=== PATIENT | male | born 1930 | race Caucasian/White ===

== ENCOUNTER 2017-03-08 03:04 | Emergency (ER) | payer OTHER ==
[2017-03-08 03:13] VITALS: BMI 24.4
--- NOTE | 2017-03-08 03:44 | DR.GENAD ---
HPI - PCP Primary Care PhysicianAkshat Salas - Complaint/Symptoms Chief Complaint:: "Since about 10 I have been feeling really anxious. When I checked my blood pressure it was 190/98. I have also been feeling some hot flashes." - Source History Provided: Patient - Mode of Arrival Mode of Arrival: Ambulatory - Timing Onset of Chief Complaint: 03/08/17 PMH - PMH Past Medical History: Yes Past Medical History: Depression, Dyslipidemia, GERD, Hypertension Past Surgical History: Yes Surgical History: Cholecystectomy, Ortho Surgery - Family History History of Family Medical Conditions: Yes Family Medical History: Diabetes Mellitus - Social History Does patient currently use any type of tobacco product: No Have you used tobacco products in the last 12 months: No Type of Tobacco Use: None Does any household member use tobacco: No Alcohol Use: None Do you use any recreational Drugs:: No Lives With: Family Lives Where: Home - infectious screening In the last 2 months have you had wt loss of >10#?: NO Have you had fever, night sweats or hemotysis?: No Have you traveled outside the country in the last 6 months?: No Isolation: Standard PE - Vital Signs Vitals: Temperature 98.1 F Pulse Rate 71 Respiratory Rate 18 Blood Pressure [Left Arm] 141/88 Blood Pressure [Right Arm] 155/70 Blood Pressure 168/85 O2 Sat by Pulse Oximetry 94 - General General Appearance: Alert, In No Apparent Distress - Head Head Exam: Normal Inspection, Atraumatic - Eyes Eye exam: Normal Appearance, PERRL, EOMI - ENT ENT Exam: Normal Exam External Ear Exam: Normal External Inspection TM/Canal Exam: Bilateral Normal Nose Exam: Normal Nose Exam Mouth Exam: Normal Inspection Throat Exam: Normal Inspection - Neck Neck Exam: Normal Inspection - Chest Chest Inspection: Normal Inspection - Respiratory Respiratory Exam: Normal Lung Sounds Bilat Respiratory Exam: Bilateral Clear to Auscultation - Cardiovascular Cardiovascular Exam: Regular Rate, Normal Rhythm - Abdominal Exam Abdominal Exam: Normal Inspection, Normal Bowel Sounds Abdominal Tenderness: negative: RUQ, RLQ, LUQ, LLQ, Epigastrium, Suprapubic, Diffuse, Mild, Moderate, Severe, Other - Extremities Extremities Exam: Normal Inspection, Full ROM - Back Back Exam: Normal Inspection, Full ROM - Neurologic Neurological Exam: Alert, Oriented X3, CN II-XII Intact - Psychiatric Psychiatric Exam: Normal Affect - Skin Skin Exam: Warm, Dry, Intact Course - Reevaluation 1st: Improved ROR - Labs Reviewed Result Diagrams: 03/08/17 03:55 03/08/17 03:55 Laboratory: WBC 7.4 X10^3/uL (3.6-10.0) 03/08/17 03:55 RBC 4.76 X10^6/uL (4.7-6.0) 03/08/17 03:55 Hgb 13.8 g/dL (13.5-18.0) 03/08/17 03:55 Hct 40.7 % (42.0-54.0) L 03/08/17 03:55 MCV 85.4 fL (80.0-100.0) 03/08/17 03:55 MCH 28.9 pg (27.0-34.0) 03/08/17 03:55 MCHC 33.8 g/dL (33.0-35.0) 03/08/17 03:55 RDW 15.9 % (11.6-16.5) 03/08/17 03:55 Plt Count 226 X10^3/uL (150.0-450.0) 03/08/17 03:55 MPV 7.1 fL (7.4-11.0) L 03/08/17 03:55 Neut % 70.9 % (42.0-75.0) 03/08/17 03:55 Lymph % 18.5 % (21.0-51.0) L 03/08/17 03:55 [place] % 6.5 % (0.0-13.0) 03/08/17 03:55 Eos % 3.0 % (0.9-2.9) H 03/08/17 03:55 Baso % 1.1 % (0.2-1.0) H 03/08/17 03:55 Neut # 5.3 x10^3/uL (2.2-4.8) H 03/08/17 03:55 Lymph # 1.4 X10^3/uL (1.3-2.9) 03/08/17 03:55 [place] # 0.5 x10^3/uL (0.3-0.8) 03/08/17 03:55 Eos # 0.2 x10^3/uL (0.0-0.2) 03/08/17 03:55 Baso # 0.1 X10^3/uL (0.0-0.1) 03/08/17 03:55 Absolute Nucleated RBC 0.0 /100WBC 03/08/17 03:55 Sodium 140 mmol/L (136-145) 03/08/17 03:55 Corrected Sodium 141 mmol/L (136-145) 03/08/17 03:55 Potassium 4.4 mmol/L (3.5-5.1) 03/08/17 03:55 Chloride 104 mmol/L (98-107) 03/08/17 03:55 Carbon Dioxide 28.6 mmol/L (21-32) 03/08/17 03:55 BUN 31 mg/dL (7-18) H 03/08/17 03:55 Creatinine 0.98 mg/dL (0.70-1.30) 03/08/17 03:55 Est GFR (MDRD) Af Amer > 60 (>60) 03/08/17 03:55 Est GFR (MDRD) Non-Af > 60 (>60) 03/08/17 03:55 Glucose 121 mg/dL (65-99) H 03/08/17 03:55 Calcium 8.4 mg/dL (8.5-10.1) L 03/08/17 03:55 Corrected Calcium 9.0 mg/dL (8.5-10.1) 03/08/17 03:55 Total Bilirubin 0.30 mg/dL (0.2-1.0) 03/08/17 03:55 AST 21 Units/L (15-37) 03/08/17 03:55 ALT 36 Units/L (12-78) 03/08/17 03:55 Alkaline Phosphatase 53 Units/L (46-116) 03/08/17 03:55 Total Protein 6.5 g/dL (6.4-8.2) 03/08/17 03:55 Albumin 3.3 g/dL (3.4-5.0) L 03/08/17 03:55 Globulin 3.2 g/dL (2.5-4.5) 03/08/17 03:55 Albumin/Globulin Ratio 1.0 Ratio (1.1-2.1) L 03/08/17 03:55 - Diagnosis Discharge Problem: Mild dehydration - Discharge Plan Condition: Stable - Follow ups/Referrals Follow ups/Referrals: Serjio Salas [Primary Care Provider] - 3 days - Instructions
[2017-03-08] MEDS ORDERED: NS 1000 ML 1,000 ML ONE (03:54)
[2017-03-08 03:55] VITALS: BP 168/85
[2017-03-08] MEDS: NS 1000 ML 1,000 ML IV SCH (04:06)
[2017-03-08 04:12] LABS: BASOPHILS # (AUTO) 0.1 X10^3/uL (0.0-0.1); BASOPHILS % (AUTO) 1.1 % (0.2-1.0); EOSINOPHILS # (AUTO) 0.2 x10^3/uL (0.0-0.2); HEMATOCRIT 40.7 % (42.0-54.0); HEMOGLOBIN 13.8 g/dL (13.5-18.0); LYMPHOCYTES # (AUTO) 1.4 X10^3/uL (1.3-2.9); LYMPHOCYTES % (AUTO) 18.5 % (21.0-51.0); MEAN CORPUSCULAR HEMOGLOBIN 28.9 pg (27.0-34.0); MEAN CORPUSCULAR HGB CONC 33.8 g/dL (33.0-35.0); MEAN CORPUSCULAR VOLUME 85.4 fL (80.0-100.0); MEAN PLATELET VOLUME 7.1 fL (7.4-11.0); MONOCYTES # (AUTO) 0.5 x10^3/uL (0.3-0.8); MONOCYTES % (AUTO) 6.5 % (0.0-13.0); NEUTROPHILS # (AUTO) 5.3 x10^3/uL (2.2-4.8); NEUTROPHILS % (AUTO) 70.9 % (42.0-75.0); PLATELET COUNT 226 X10^3/uL (150.0-450.0); RED BLOOD COUNT 4.76 X10^6/uL (4.7-6.0); RED CELL DISTRIBUTION WIDTH 15.9 % (11.6-16.5); WHITE BLOOD COUNT 7.4 X10^3/uL (3.6-10.0)
[2017-03-08 04:23] LABS: ALANINE AMINOTRANSFERASE 36 Units/L (12-78); ALBUMIN 3.3 g/dL (3.4-5.0); ALKALINE PHOSPHATASE 53 Units/L (46-116); ASPARTATE AMINO TRANSFERASE 21 Units/L (15-37); BLOOD UREA NITROGEN 31 mg/dL (7-18); CALCIUM 8.4 mg/dL (8.5-10.1); CARBON DIOXIDE 28.6 mmol/L (21-32); CHLORIDE 104 mmol/L (98-107); COR NA(FOR HYPERGLY) 141 mmol/L (136-145); CREATININE 0.98 mg/dL (0.70-1.30); GLUCOSE 121 mg/dL (65-99); SODIUM 140 mmol/L (136-145); TOTAL PROTEIN 6.5 g/dL (6.4-8.2); eGFR BLACK RACES > 60 (>60); eGFR NON BLACK RACES > 60 (>60)
== END 2017-03-08 05:39 | disposition home or self-care (01) ==
LOC: ER 03:04
DX: E86.0 Dehydration (principal)
CPT/HCPCS: 36415; 80053; 85025; 96365; 96367; 99282; 99283; A4222

== ENCOUNTER 2017-03-16 18:20 | Emergency (ER) | payer OTHER ==
[2017-03-16 18:29] VITALS: BP 157/82; BMI 24.8
--- NOTE | 2017-03-17 05:32 | DR.GENAD ---
HPI - PCP Primary Care Physician: Josue - Complaint/Symptoms Chief Complaint:: pt cut his right hand today. Laceration noted to top of right hand. No active bleeding is noted - Source History Provided: Patient - Mode of Arrival Mode of Arrival: Ambulatory - Timing Onset of Chief Complaint: 03/16/17 PMH - PMH Past Medical History: Yes Past Medical History: Depression, Dyslipidemia, GERD, Hypertension Past Surgical History: Yes Surgical History: Cholecystectomy, Ortho Surgery - Family History History of Family Medical Conditions: Yes Family Medical History: Diabetes Mellitus - Social History Does patient currently use any type of tobacco product: No Have you used tobacco products in the last 12 months: No Type of Tobacco Use: None Does any household member use tobacco: No Alcohol Use: None Do you use any recreational Drugs:: No Lives With: Spouse Lives Where: Home - infectious screening In the last 2 months have you had wt loss of >10#?: NO Have you had fever, night sweats or hemotysis?: No Have you traveled outside the country in the last 6 months?: No Isolation: Standard PE - Vital Signs Vitals: Temperature 98.6 F Pulse Rate 71 Respiratory Rate 16 Blood Pressure [Left Arm] 141/88 Blood Pressure [Right Arm] 155/70 Blood Pressure 157/82 O2 Sat by Pulse Oximetry 95 - Discharge Plan Disposition: LWBS After Triage Condition: Stable - Follow ups/Referrals Follow ups/Referrals: Serjio Salas [Primary Care Provider] - 3 days - Instructions
== END 2017-03-16 20:39 | disposition left against medical advice (07) ==
LOC: ER 18:20
DX: S61.411A Laceration without foreign body of right hand, initial encounter (principal); W45.8XXA Other foreign body or object entering through skin, initial encounter; Y92.9 Unspecified place or not applicable
CPT/HCPCS: 99281

== ENCOUNTER 2017-12-17 22:58 | Emergency (ER) | payer OTHER ==
[2017-12-17 23:11] VITALS: BP 173/83; BMI 25.4
--- NOTE | 2017-12-17 23:22 | DR.GENAD ---
HPI - PCP Primary Care Physician: - HPI Comment HPI Comment: PERSISTENT. NO TRAUMA. NO FEVER. - Complaint/Symptoms Chief Complaint Doctors Comments: DIZZINESS, ATAXIA AND NAUSEA TIMES FEW HOURS. Chief Complaint:: Nausea, Dizziness and Weakness Self Treatment fo Chief Complaint: None - Nurses notes reviewed Nurses Notes Review: Yes - Source History Provided: Patient, Family Member - Mode of Arrival Mode of Arrival: Wheelchair - Timing Onset of Chief Complaint: 12/17/17 Came on: Suddenly - Duration Duration: Constant Duration: Days - Severity Severity: Moderate PMH - PMH Past Medical History: Yes Past Medical History: Hypertension Past Surgical History: Yes Surgical History: Cholecystectomy, Ortho Surgery Past Surgical History Comment: Back, Gall Bladder, Knee Replacement and Hernia - Family History History of Family Medical Conditions: Yes Family Medical History: Cancer Family Medical History Comment: Son - Social History Does patient currently use any type of tobacco product: No Have you used tobacco products in the last 12 months: No Type of Tobacco Use: None Does any household member use tobacco: No Do you use any recreational Drugs:: No Lives With: Alone Lives Where: Home - infectious screening In the last 2 months have you had wt loss of >10#?: NO Have you had fever, night sweats or hemotysis?: No Have you traveled outside the country in the last 6 months?: No Isolation: Standard ROS - Review of Systems Constitutional: No Symptoms Reported. negative: Chills, Fever, Weakness, Fatigue Eyes: No Symptoms Reported. negative: Eye Pain, Blurred Vision, Discharge, Photophobia ENTM: No Symptoms Reported. negative: Ear Pain, Nose Discharge, Nose Congestion , Throat Pain Respiratoy: No Symptoms Reported. negative: Productive Cough, Non-Productive Cough, Short of Breath, Wheezing Cardiovascular: No Symptoms Reported. negative: Chest Pain Gastrointestinal/Abdominal: Nausea. negative: Abdominal Pain, Vomiting Genitourinary: negative: Dysuria, Hematuria Neurological: Headache, Dizziness. negative: Weakness Musculoskeletal: No Symptoms Reported Integumentary: No Symptoms Reported Hematologic/Lymphatic: No Symptoms Reported Endocrine: No Symptoms Reported All Other Systems: Reviewed and Negative PE - Vital Signs Vitals: Temperature 98.7 F Pulse Rate 71 Respiratory Rate 16 Blood Pressure [Left Arm] 141/88 Blood Pressure [Right Arm] 155/70 Blood Pressure 173/83 O2 Sat by Pulse Oximetry 90 - General Limitations: No Limitations General Appearance: Alert - Head Head Exam: Normal Inspection - Eyes Eye exam: Normal Appearance - ENT ENT Exam: Normal External Ear Exam External Ear Exam: Normal External Inspection TM/Canal Exam: Bilateral Normal Nose Exam: Normal Nose Exam Mouth Exam: Normal Inspection Throat Exam: Normal Inspection - Neck Neck Exam: Trachea Midline - Chest Chest Inspection: Symmetric Chest Wall Rise - Respiratory Respiratory Exam: Normal Lung Sounds Bilat Respiratory Exam: Bilateral Clear to Auscultation - Cardiovascular Cardiovascular Exam: Regular Rate, Normal Rhythm, Normal Heart Sounds - Abdominal Exam Abdominal Exam: Normal Bowel Sounds, Soft. negative: Tenderness - Extremities Extremities Exam: Normal Inspection - Back Back Exam: Normal Inspection - Neurologic Neurological Exam: Alert, Oriented X3, CN II-XII Intact, Reflexes Normal. negative: Normal Gait (ATAXIA), Motor Sensory Deficit - Psychiatric Psychiatric Exam: Normal Affect, Normal Mood - Skin Skin Exam: Normal Color MDM - Additional Information Additional Information Obtained From: Family - Differential Diagnosis Differential Diagnosis: VERTIGO, CVA, LABYRINTHITIS, SINUSITIS Course - Treatment Treatment: SEE ORDERS. MECLIZINE AND NAUSEA MED IN ED. - Reevaluation 1st: Improved (DIZZINESS IMPROVE.) - Education/Counseling Education/Counseling: Patient, Family, Education Educated On: Diagnosis, Needs for Follow Up ROR - Labs Reviewed Laboratory Results Reviewed?: Yes Result Diagrams: 12/17/17 23:38 12/17/17 23:38 Laboratory: WBC 6.9 X10^3/uL (3.6-10.0) 12/17/17 23:38 RBC 4.55 X10^6/uL (4.7-6.0) L 12/17/17 23:38 Hgb 13.4 g/dL (13.5-18.0) L 12/17/17 23:38 Hct 39.2 % (42.0-54.0) L 12/17/17 23:38 MCV 86.1 fL (80.0-100.0) 12/17/17 23:38 MCH 29.4 pg (27.0-34.0) 12/17/17 23:38 MCHC 34.1 g/dL (33.0-35.0) 12/17/17 23:38 RDW 15.3 % (11.6-16.5) 12/17/17 23:38 Plt Count 198 X10^3/uL (150.0-450.0) 12/17/17 23:38 MPV 7.7 fL (7.4-11.0) 12/17/17 23:38 Neut % (Auto) 68.1 % (42.0-75.0) 12/17/17 23:38 Lymph % (Auto) 20.3 % (21.0-51.0) L 12/17/17 23:38 [place] % (Auto) 7.0 % (0.0-13.0) 12/17/17 23:38 Eos % (Auto) 3.9 % (0.9-2.9) H 12/17/17 23:38 Baso % (Auto) 0.7 % (0.2-1.0) 12/17/17 23:38 Neut # (Auto) 4.7 x10^3/uL (2.2-4.8) 12/17/17 23:38 Lymph # (Auto) 1.4 X10^3/uL (1.3-2.9) 12/17/17 23:38 [place] # (Auto) 0.5 x10^3/uL (0.3-0.8) 12/17/17 23:38 Eos # (Auto) 0.3 x10^3/uL (0.0-0.2) H 12/17/17 23:38 Baso # (Auto) 0.0 X10^3/uL (0.0-0.1) 12/17/17 23:38 Absolute Nucleated RBC 0.0 /100WBC 12/17/17 23:38 Sodium 140 mmol/L (136-145) 12/17/17 23:38 Corrected Sodium 140 mmol/L (136-145) 12/17/17 23:38 Potassium 4.2 mmol/L (3.5-5.1) 12/17/17 23:38 Chloride 105 mmol/L (98-107) 12/17/17 23:38 Carbon Dioxide 29.2 mmol/L (21-32) 12/17/17 23:38 BUN 31 mg/dL (7-18) H 12/17/17 23:38 Creatinine 1.03 mg/dL (0.70-1.30) 12/17/17 23:38 Est GFR (MDRD) Af Amer > 60 (>60) 12/17/17 23:38 Est GFR (MDRD) Non-Af > 60 (>60) 12/17/17 23:38 Glucose 114 mg/dL (65-99) H 12/17/17 23:38 Calcium 9.0 mg/dL (8.5-10.1) 12/17/17 23:38 Corrected Calcium TNP 12/17/17 23:38 Total Bilirubin 0.30 mg/dL (0.2-1.0) 12/17/17 23:38 AST 23 Units/L (15-37) 12/17/17 23:38 ALT 34 Units/L (12-78) 12/17/17 23:38 Alkaline Phosphatase 57 Units/L (46-116) 12/17/17 23:38 Creatine Kinase 212 Units/L (39-308) 12/17/17 23:38 CK-MB (CK-2) 3.4 ng/mL (0-4.0) 12/17/17 23:38 CK/CKMB % Calc 1.6 % (<4) 12/17/17 23:38 Troponin I 0.02 ng/mL (0-1.5) 12/17/17 23:38 Total Protein 7.1 g/dL (6.4-8.2) 12/17/17 23:38 Albumin 3.7 g/dL (3.4-5.0) 12/17/17 23:38 Globulin 3.4 g/dL (2.5-4.5) 12/17/17 23:38 Albumin/Globulin Ratio 1.1 Ratio (1.1-2.1) 12/17/17 23:38 - XRAY XRAY Findings: REPORT DISCUSS WITH PATIENT. - EKG Rhythm: NSR (EKG NOTED.) - Diagnosis Discharge Problem: Vertigo, Dizziness - Discharge Plan Disposition: 01 HOME, SELF-CARE Condition: Stable Prescriptions: Meclizine HCl 25 mg PO TID PRN #30 tab PRN Reason: Dizziness Ondansetron [Zofran ODT 8 mg] 8 mg PO Q8H PRN #12 tab PRN Reason: Nausea/Vomiting - Follow ups/Referrals Follow ups/Referrals: Serjio Salas [Primary Care Provider] - 3 days - Instructions Instructions: Vertigo, [id number], Dizziness, [id number] Additional Instructions: RETURN TO ED IF WORSE.
[2017-12-17] MEDS ORDERED: ZOFRAN INJ 4 MG VIAL ONE (23:34)
[2017-12-17] MEDS ORDERED: ANTIVERT TAB 25 MG PO ONE (23:37)
[2017-12-17] MEDS ORDERED: ZOFRAN INJ 4 MG VIAL IVP ONE (23:37)
[2017-12-17 23:50] LABS: BASOPHILS % (AUTO) 0.7 % (0.2-1.0); EOSINOPHILS # (AUTO) 0.3 x10^3/uL (0.0-0.2); EOSINOPHILS % (AUTO) 3.9 % (0.9-2.9); HEMATOCRIT 39.2 % (42.0-54.0); HEMOGLOBIN 13.4 g/dL (13.5-18.0); LYMPHOCYTES # (AUTO) 1.4 X10^3/uL (1.3-2.9); LYMPHOCYTES % (AUTO) 20.3 % (21.0-51.0); MEAN CORPUSCULAR HEMOGLOBIN 29.4 pg (27.0-34.0); MEAN CORPUSCULAR HGB CONC 34.1 g/dL (33.0-35.0); MEAN CORPUSCULAR VOLUME 86.1 fL (80.0-100.0); MEAN PLATELET VOLUME 7.7 fL (7.4-11.0); MONOCYTES # (AUTO) 0.5 x10^3/uL (0.3-0.8); NEUTROPHILS # (AUTO) 4.7 x10^3/uL (2.2-4.8); NEUTROPHILS % (AUTO) 68.1 % (42.0-75.0); PLATELET COUNT 198 X10^3/uL (150.0-450.0); RED BLOOD COUNT 4.55 X10^6/uL (4.7-6.0); RED CELL DISTRIBUTION WIDTH 15.3 % (11.6-16.5); WHITE BLOOD COUNT 6.9 X10^3/uL (3.6-10.0)
[2017-12-18 00:03] LABS: BLOOD UREA NITROGEN 31 mg/dL (7-18); CARBON DIOXIDE 29.2 mmol/L (21-32); CHLORIDE 105 mmol/L (98-107); COR NA(FOR HYPERGLY) 140 mmol/L (136-145); CREATININE 1.03 mg/dL (0.70-1.30); SODIUM 140 mmol/L (136-145); TROPONIN I 0.02 ng/mL (0-1.5); eGFR BLACK RACES > 60 (>60); eGFR NON BLACK RACES > 60 (>60)
[2017-12-18 00:07] LABS: ALANINE AMINOTRANSFERASE 34 Units/L (12-78); ALBUMIN 3.7 g/dL (3.4-5.0); ALKALINE PHOSPHATASE 57 Units/L (46-116); ASPARTATE AMINO TRANSFERASE 23 Units/L (15-37); CKMB % 1.6 % (<4); CREATINE KINASE 212 Units/L (39-308); CREATINE KINASE MB 3.4 ng/mL (0-4.0); TOTAL PROTEIN 7.1 g/dL (6.4-8.2)
[2017-12-18] MEDS ORDERED: ANTIVERT TAB 25 MG ONE (00:07)
--- NOTE | 2017-12-18 00:07 | CT ---
CT head without contrast : Dizziness, weakness, nausea Comparison: 01/05/2015 Technique: CT images of the head were obtained without contrast. Automatic exposure control was [employer]. Findings: There is age-appropriate generalized brain atrophy with concomitant ventricular and sulcal enlargement. There is no acute bleed, mass effect, or abnormal extra-axial collection. No acute june rial fracture is seen. Chronic left maxillary sinusitis is similar prior. The remaining visualized pa ranasal sinuses and mastoid air cells are grossly clear. There is chronic appearing fracture of the anterior and posterior arches of C1, incompletely visualiz ed, but new from prior (for example axial image 1). No significant subluxation of the C1 lateral mass es is appreciated. Impression: 1. No acute intracranial abnormality. 2. Chronic left maxillary sinusitis 3. Brian fracture of C1 is new from 2014, but appears chronic. Correlation with injury history is recommended. Reported By:
--- NOTE | 2017-12-18 00:10 | CT ---
CT chest without contrast Indication: Dizziness, weakness, nausea Comparison: None Technique: CT images of the chest were obtained without contrast. Automatic exposure control was util ized. Findings: Chronic healed bilateral rib fractures are noted. No acute osseous abnormality is seen. Images through the upper abdomen demonstrate multiple bilateral renal cysts, including a left renal c yst measuring 8 cm. A few small nonobstructing left renal stones are noted, measuring approximately 2 -3 mm. Colonic diverticulosis is observed. There is moderate hiatal hernia of the stomach. Evaluation of the mediastinum is limited without contrast. Accounting for this, the thoracic aorta is grossly unremarkable. Scattered coronary atherosclerotic calcifications are noted. Normal heart size , without pericardial thickening or pericardial effusion. No suspicious intrathoracic lymph nodes are observed. Aside from minimal atelectasis in the basilar lower lobes, the lungs are clear. No pleural effusion or pneumothorax. The major airways are patent. Impression: 1. No acute cardiopulmonary abnormality. 2. Additional findings as above, including bilateral renal cysts, nonobstructing left nephrolithiasis , hiatal hernia, colonic diverticulosis. Reported By:
== END 2017-12-18 01:21 | disposition home or self-care (01) ==
LOC: ER 22:58
DX: R42 Dizziness and giddiness (principal)
CPT/HCPCS: 36415; 70450; 71250; 80053; 82550; 82553; 84484; 85025; 93005; 93010; 96365; 96374; 99283; A4222; J2405